=== PATIENT | female | born 1975 | race Caucasian/White ===

== ENCOUNTER 2018-07-30 08:23 | Outpatient (CLI) | payer OTHER | END 2018-07-30 08:24 | disposition home or self-care (01) | LOC: BICMAMMO 08:23 | PROVIDERS: ATTEND Obstetrics & Gynecology | DX: Z12.31 Encounter for screening mammogram for malignant neoplasm of breast (principal) | CPT/HCPCS: 77063; 77067 ==

== ENCOUNTER 2019-12-22 12:51 | Outpatient (CLI) | payer OTHER ==
[~2019-12-22 12:51] MED LIST: Magnevist 469MG/ML 20 ML VIAL ONE
--- NOTE | 2019-12-22 14:06 | MRI ---
Magnetic resonance angiogram MRA brain noncontrast: 12/22/2019 HISTORY: 44-year-old female with ICD-10: "R 47.01 anomic aphasia" and lightheadedness. TECHNIQUE: 3-D [id number] MRA performed through [facility]. Source images and 3-D MIP reconstructions. FINDINGS: Bilateral carotid siphons, A1 and A2 segments of bilateral ACAs, M1 segments of bilateral MCAs, and t heir proximal branches, intracranial bilateral vertebrals, basilar, posterior cerebral's, superior cerebellar's, right PICA, bilateral AICA's, including left AICA-PICA, all have normal caliber. No verónica dence of aneurysm larger than 3 mm. IMPRESSION: Negative
--- NOTE | 2019-12-22 14:27 | MRI ---
MRI BRAIN WITH AND WITHOUT CONTRAST: DATE: 12/22/2019 HISTORY: 44-year-old female with ICD-10: "R47.01 anomic aphasia" and lightheadedness COMPARISON: None TECHNIQUE: Multiplanar, multisequence MRI of the brain performed pre- and post-IV injection of gadolinium based contrast agent. FINDINGS: Involving the cortex of the left middle frontal gyrus or another gyrus just lateral and inferior to i t, there is a subtle finding of thin gyriform T2 hyperintense and FLAIR hyperintense signal abnormality, associated with unusually strong enhancement of a cortical vessel, apparently a cortical vein. Slightly posterior to that, there is another such strongly enhancing blood vessel that is connected to an approximately 1 x 0.5 x 0.4 cm patchy focus of strong enhancement, which is either co rtical or pial enhancement. Slightly medial to that in the left centrum semiovale, there are a few small, patchy, ill-defined sub tle foci of T2 hyperintensity and FLAIR hyperintensity. All of these are associated with minimally increased signal intensity on the diffusion-weighted images (which do not appear to be T2 shine throu gh). There is no evidence of recent or remote intra-axial hemorrhage. No mass effect, midline shift, obstr uctive hydrocephalus, or extra-axial fluid collection. No dural venous sinus thrombosis.. IMPRESSION: Collection of subtle signal abnormalities involving cortical buckner matter and adjacent deep cerebral w al matter, usually strongly enhancement of immediately adjacent cortical veins, and a small patch of strong enhancement which could either be abnormal cortical enhancement or pial enhancement., All i n the left upper cerebrum. Etiology is uncertain. Possibilities include cerebral cortical vein thrombosis and adjacent mild ischemia of venous origin, and possibly subacute small venous infarction . The other possibility for the enhancing lesion is a small vascular anomaly, more specifically capillary telangiectasia. Recommend follow-up MRI of the brain with and without contrast (on the [address] at [facility]) in 3 months.
== END 2019-12-22 12:52 | disposition home or self-care (01) ==
LOC: MRI 12:51
PROVIDERS: ATTEND Family Medicine
DX: R47.01 Aphasia (principal); R90.82 White matter disease, unspecified
CPT/HCPCS: 70544; 70553; A9579